=== PATIENT | male | born 1980 | race American Indian/Alaskan Native ===

== ENCOUNTER 2018-05-30 16:35 | Emergency (ER) | payer OTHER ==
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
--- NOTE | 2018-05-30 17:30 | XRay Report ---
PROCEDURE: XR SPINE LUMBOSACRAL 2-3V TECHNIQUE: AP and lateral radiographs of the lumbar spine. HISTORY: low back pain COMPARISONS: None. FINDINGS: There are 6 lumbar type vertebral bodies. Mild levoconvex curvature of the lumbar spine. No spondylolisthesis. No compression fracture. The disc spaces are maintained. The paravertebral soft tissues are normal. IMPRESSION: Mild levoconvex curvature of the lumbar spine. This document is electronically signed by Luz Maria Gibbs., May 30 2018 05:27:56 PM ET
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
[2018-05-30] MEDS ORDERED: IBUPROFEN PO ONE (18:00)
[2018-05-30] MEDS ORDERED: NORCO 5/325 PO ONE (18:00)
[2018-05-30] MEDS ORDERED: FLEXERIL PO ONE (18:00)
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
[2018-05-30 18:46] VITALS: BP 140/91
== END 2018-05-30 18:46 | disposition home or self-care (01) ==
LOC: ED 16:35
DX: M79.18 Myalgia, other site (principal); R42 Dizziness and giddiness; M25.521 Pain in right elbow; M54.9 Dorsalgia, unspecified; F17.200 Nicotine dependence, unspecified, uncomplicated; F12.10 Cannabis abuse, uncomplicated; V49.59XA Passenger injured in collision with other motor vehicles in traffic accident, initial encounter; Y93.89 Activity, other specified; Y92.89 Other specified places as the place of occurrence of the external cause; Y99.8 Other external cause status
CPT/HCPCS: 70450; 72100